=== PATIENT | male | born 1955 | race Two or more races ===

== ENCOUNTER 2021-03-13 11:40 | Outpatient (CLI) | payer OTHER | END 2021-03-13 11:48 | disposition home or self-care (01) | LOC: LAB 11:40 | PROVIDERS: ATTEND Urology | DX: R97.20 Elevated prostate specific antigen [PSA] (principal) ==

== ENCOUNTER 2021-04-11 07:12 | Outpatient (CLI) | payer OTHER | END 2021-04-11 07:29 | disposition home or self-care (01) | LOC: SONOGRAMA 07:12 | PROVIDERS: ATTEND Urology | DX: C61 Malignant neoplasm of prostate (principal); D29.1 Benign neoplasm of prostate; R97.20 Elevated prostate specific antigen [PSA] ==